=== PATIENT | female | born 1970 | race Caucasian/White ===

== ENCOUNTER 2023-07-03 10:17 | Outpatient (OUT) | payer OTHER, SELFPAY ==
--- NOTE | 2023-07-03 10:19 | MM_ITS ---
Patient Name: ADELA STEVENSON MR#: [id number] : 1970 Exam Date: 07/03/2023 Ordering Doctor: DR BIENVENIDO ALEXANDRE M.D. RADIOLOGY REPORT PROCEDURE: MM TOMOSYNTHESIS SCREENING BI COMPARISON: MG MAMM SCREEN 3D ARACELI CAD, 06/24/2022. MG MAMM SCREEN 3D ARACELI CAD, 06/21/2021. MG MAMM SCREEN ARACELI W CAD, 06/17/2020. MG MAMM ARACELI SCRN W CAD DIG, 01/28/2014. INDICATIONS: Screening Calculator Name NCI Breast Cancer Risk Assessment Tool 5 Year Breast Cancer Risk 1.00% Lifetime Breast Cancer Risk 8.40% Personal Breast Cancer No Personal Ovarian Cancer No Treatments Excision Family Cancers None LOCATION: [facility] BREAST COMPOSITION: Heterogeneously dense,which may obscure small masses. FINDINGS: DIAGNOSTIC CATEGORY 2--BENIGN FINDING: RIGHT BREAST: No significant suspicious finding. Scattered benign-appearing lymph nodes are present. No significant change has occurred. LEFT BREAST: No significant suspicious finding. Scattered benign-appearing lymph nodes are present. No significant change has occurred. RECOMMENDATIONS: ROUTINE MAMMOGRAM AND CLINICAL EVALUATION IN 12 MONTHS. PLEASE NOTE: A NORMAL MAMMOGRAM DOES NOT EXCLUDE THE POSSIBILITY OF BREAST CANCER. A CLINICALLY SUSPICIOUS PALPABLE LUMP SHOULD BE BIOPSIED. Dictated by: Zack Mathias M.D. on 07/05/2023 at 15:43 Approved by: Zack Mathias M.D. on 07/05/2023 at 15:47
== END 2023-07-03 10:18 | disposition home or self-care (01) ==
LOC: MAMMO 10:18
PROVIDERS: PCP Family Medicine; Visit Provider Family Medicine
DX: Z12.31 Encounter for screening mammogram for malignant neoplasm of breast (principal)
CPT/HCPCS: 77063; 77067